=== PATIENT | female | born 1955 | race Caucasian/White ===

== ENCOUNTER → 2016-10-13 | Outpatient (CLI) | payer MEDICARE, MEDICAID ==
[2011-11-01 17:09] VITALS: BP 142/88
[~2016-10-13] MED LIST: ATIVAN1 MG PO; FLEXERIL10 MG PO; HYDROXYZINE PAM25 MG PO; LASIX40 MG PO; LISINOPRIL10 MG PO; LORTAB 5/500 501 TAB PO; METHADONE10 MG PO; PHENERGAN 25 TA25 MG PO; ST. JOSEPH81 M2 PO; XANAX1 MG PO
== END ==
LOC: RAD 13:41
DX: M25.562 Pain in left knee (principal); S83.282A Other tear of lateral meniscus, current injury, left knee, initial encounter; X58.XXXA Exposure to other specified factors, initial encounter

== ENCOUNTER → 2016-11-07 | Outpatient (CLI) | payer MEDICARE, MEDICAID ==
[2011-11-01 17:09] VITALS: BP 142/88
== END ==
LOC: PT 12:37
DX: M25.562 Pain in left knee (principal)

== ENCOUNTER 2017-01-08 11:00 | Outpatient (RCR) | payer MEDICARE, MEDICAID ==
[2011-11-01 17:09] VITALS: BP 142/88
== END 2017-01-08 12:11 | disposition home or self-care (01) ==
LOC: PT 11:00
DX: Z47.89 Encounter for other orthopedic aftercare (principal)
CPT/HCPCS: G8978-GP; G8979-GP

== ENCOUNTER 2023-06-05 19:08 | Emergency (ER) | payer MEDICARE, OTHER ==
[~2023-06-05] VITALS: Ht 175.3 cm; Wt 109.1 kg
[~2023-06-05 19:08] MED LIST changes: -ATIVAN1 MG PO; +ATIVAN2 MG PO
[2023-06-05] MEDS ORDERED: ACETAMINOPHEN-H1 TA1 PO (20:37)
[2023-06-05] MEDS ORDERED: LOSARTAN POTAS100 MG PO (20:38)
[2023-06-05 20:47] VITALS: BP 145/93
== END 2023-06-05 20:47 | disposition home or self-care (01) ==
LOC: ED 19:08
DX: S93.601A Unspecified sprain of right foot, initial encounter (principal); Z87.891 Personal history of nicotine dependence; W01.0XXA Fall on same level from slipping, tripping and stumbling without subsequent striking against object, initial encounter; X50.1XXA Overexertion from prolonged static or awkward postures, initial encounter

== ENCOUNTER → 2023-07-24 | Outpatient (CLI) | payer MEDICARE, OTHER ==
[~2023-07-24] MED LIST changes: +ACETAMINOPHEN-H1 TA1 PO; +LOSARTAN POTAS100 MG PO
[2023-07-24 15:46] LABS: BASO # 0.04 K/mm3 (0.02-0.10); EOS # 0.04 K/mm3 (0.04-0.40); EOS % 0.6 % (1.0-5.0); HEMATOCRIT 41.2 % (37.0-47.0); LYMPH# 1.79 K/mm3 (1.50-4.00); MEAN CELL VOLUME 92 fl (78-100); MEAN CORPUSCULAR HEMOGLOBIN 31 pg (27-31); MEAN CORPUSCULAR HGB CONC 34 g/dL (33-37); MEAN PLATELET VOLUME 9.8 fl (7.4-10.4); MONO # 0.45 K/mm3 (0.20-0.80); NEU # 4.28 K/mm3 (1.40-6.50); PLATELET COUNT 212 K/mm3 (130-400); RED BLOOD COUNT 4.47 M/mm3 (4.10-5.30); RED CELL DISTRIBUTION WIDTH 11.6 % (11.5-14.5); WHITE BLOOD COUNT 6.6 K/mm3 (4.8-10.8)
[2023-07-24 15:52] LABS: ALBUMIN 4.3 g/dL (3.4-4.8)
[2023-07-24 15:54] LABS: CALCIUM 9.8 mg/dL (8.3-10.5)
[2023-07-24 15:55] LABS: TOTAL PROTEIN 7.3 g/dL (6.2-8.1)
[2023-07-24 15:57] LABS: TOTAL BILIRUBIN 0.6 mg/dL (0.2-1.2)
== END ==
LOC: LAB 15:23
PROVIDERS: Nurse Practitioner Family
DX: I89.0 Lymphedema, not elsewhere classified (principal)